=== PATIENT | male | born 1960 | race Caucasian/White ===

== ENCOUNTER → 2022-05-24 | Outpatient (CLI) | payer MEDICARE ==
[~2022-05-24] MED LIST: ALPR0.2550; ASP325T PO; AZIT-21 PO; CHOL200041 PO; CND32T; CRS350T PO; CRV25T PO; CYCL10TA9; FLT05NA16 NS; GEMF600T3; HYDR-1231 PO; HYDR1TAB PO; LISI40TA PO; LOSA100T7 PO; LRT10T PO; METR500T PO; MULT-608; NAPR550T PO; NF-ESOM40C PO; OMEG1CAP51 PO; OMG1KC PO; PNT40TEC; PRV20T PO; ZLP10T PO; ZOLP12.5
--- NOTE | 2022-05-24 14:18 | Diagnostic Imaging Report ---
INDICATION: LEFT KNEE PAIN FOR LAST 6 MONTHS COMPARISON: None. FINDINGS: 3 views of the left knee joint demonstrate no acute fracture or dislocation. No focal osseous lesions are seen. No significant joint effusion is seen. The surrounding soft tissue structures are unremarkable. There are no radiopaque foreign bodies. IMPRESSION: 1. No acute fractures or dislocations of the left knee joint. Dictated by: Dictated on workstation # [id number]
== END ==
LOC: RAD 09:10
PROVIDERS: ATTEND Family Medicine
DX: M25.562 Pain in left knee (principal)
CPT/HCPCS: 73562